=== PATIENT | female | born 1970 | race Two or more races ===

== ENCOUNTER 2017-09-03 16:39 | Emergency (ER) | payer SELFPAY ==
[2017-09-03] MEDS ORDERED: PROCHLORPERAZINE EDISYLATE INJ 10 MG/2 ML VIAL IV ONE (18:30)
[2017-09-03] MEDS ORDERED: KETOROLAC TROMETHAMINE INJ/PF 30 MG/1 ML SDV IV ONE (18:31)
[2017-09-03] MEDS ORDERED: DIPHENHYDRAMINE HCL 50 MG/ML VIAL IV ONE (18:31)
[2017-09-03] MEDS ORDERED: DEXAMETHASONE SOD PHOS INJ 10 MG/1 ML VIAL IV ONE (18:31)
[2017-09-03] MEDS ORDERED: NORMAL SALINE 1000 ML 1,000 ML IV ONE (18:31)
--- NOTE | 2017-09-03 18:32 | ER Document Report ---
ED General - General Chief Complaint: Headache Stated Complaint: HEADACHE Time Seen by Provider: 09/03/17 18:30 Notes: Patient is a 47-year-old female with a past medical history of migraine headaches who presents with 2 days of progressively worsening right-sided headache. She describes it as a severe, throbbing, aching pain to her right forehead and temporal scalp. She states lights and sounds worsen the pain. She has been trying Lortab which has been prescribed by her primary care doctor for her headaches without any significant relief of the pain. She has associated nausea without vomiting. No focal weakness or numbness. She has not had any fever or constitutional symptoms. She states this feels very similar to prior migraine headaches that she has had in the past. She has not seen her primary doctor regarding today's concerns. She does not take any preventative medications for her migraine headaches. She states she typically has 3-4 migraine headaches per month. - Related Data Allergies/Adverse Reactions: codeine Allergy (Verified 09/03/17 16:43) Iodinated Contrast- Oral and IV Dye Allergy (Verified 09/03/17 16:43) meperidine [From Demerol] Allergy (Verified 09/03/17 16:43) morphine Allergy (Verified 09/03/17 16:43) Past Medical History - General Information source: Patient - Social History Smoking Status: Never Smoker Frequency of alcohol use: None Drug Abuse: None Family History: Reviewed & Not Pertinent Review of Systems - Review of Systems Notes: Constitutional: Negative for fever. HENT: Negative for sore throat. Eyes: Negative for visual changes. Cardiovascular: Negative for chest pain. Respiratory: Negative for shortness of breath. Gastrointestinal: Negative for abdominal pain, vomiting or diarrhea. Genitourinary: Negative for dysuria. Musculoskeletal: Negative for back pain. Skin: Negative for rash. Neurological: Positive for headache 10 point ROS negative except as marked above and in HPI. Physical Exam - Vital signs Vitals: Temp Pulse Resp BP Pulse Ox 98.0 F 63 16 117/52 L 96 09/03/17 17:31 09/03/17 17:31 09/03/17 17:31 09/03/17 17:31 09/03/17 17:31 Interpretation: Normal Notes: PHYSICAL EXAMINATION: GENERAL: Well-appearing, well-nourished and in no acute distress. HEAD: Atraumatic, normocephalic. EYES: Pupils equal round and reactive to light, extraocular movements intact, sclera anicteric, conjunctiva are normal. ENT: nares patent, oropharynx clear without exudates. Moist mucous membranes. NECK: Normal range of motion, supple without lymphadenopathy LUNGS: Breath sounds clear to auscultation bilaterally and equal. No wheezes rales or rhonchi. HEART: Regular rate and rhythm without murmurs ABDOMEN: Soft, nontender, normoactive bowel sounds. No guarding, no rebound. No masses appreciated. EXTREMITIES: Normal range of motion, no pitting or edema. No cyanosis. NEUROLOGICAL: Face symmetric. Tongue protrudes midline. Extraocular motions intact. Pupils are 2 mm and equally reactive. Normal speech, normal gait. 5 out of 5 strength in both the distal and proximal upper and lower extremities bilaterally. Sensation is grossly intact throughout. Finger to nose testing normal. Pronator drift normal. PSYCH: Normal mood, normal affect. SKIN: Warm, Dry, normal turgor, no rashes or lesions noted. Course - Re-evaluation Re-evalutation: 09/03/17 18:32 Presentation of a headache that appears to be most consistent with tension versus migrainous type headache. Headache was not maximal in onset, patient has no focal neurologic deficits, no nuchal rigidity, vital signs within normal limits, no papilledema, and patient is overall well in appearance. Based on clinical history and examination I do not suspect an acute subarachnoid hemorrhage, dural venous sinus thrombosis, acute meningitis, or intercranial mass. Given my low clinical suspicion for any acute life-threatening etiology, I do not feel advanced neuro imaging or laboratory testing is indicated at this time. Will proceed with headache cocktail and reassess. 09/03/17 19:47 Patient has had complete resolution of her headache. She remains without neurologic deficits. At this time will discharge with return precautions and follow-up recommendations. Verbal discharge instructions given a the bedside and opportunity for questions given. Medication warnings reviewed. Patient is in agreement with this plan and has verbalized understanding of return precautions and the need for primary care follow-up in the next 24-72 hours. - Vital Signs Vital signs: Temp Pulse Resp BP Pulse Ox 97.7 F 61 16 119/59 L 98 09/03/17 19:59 09/03/17 19:59 09/03/17 17:31 09/03/17 19:59 09/03/17 19:59 Discharge - Discharge Clinical Impression: Migraine headache Qualifiers: Migraine type: unspecified Status migrainosus presence: with status migrainosus Intractability: not intractable Qualified Code(s): G43.901 - Migraine, unspecified, not intractable, with status migrainosus Condition: Good Disposition: HOME, SELF-CARE Additional Instructions: You were seen today for a migraine headache. Please follow-up with your primary care doctor regarding today's ED visit. Return to emergency department immediately if you develop a headache that gets to its maximum severity within 20 minutes of onset, you pass out, you develop weakness, numbness, changes in your vision, become unable to keep any fluids down for more than 12 hours, or develop a fever greater than 100.4 degrees Fahrenheit. If you develop a similar migraine headache in the future I recommend that you immediately take 600 mg of ibuprofen and 50 mg of Benadryl and go to sleep as quickly as possible. This can often prevent your migraine headache from becoming severe. Forms: Return to Work
[2017-09-03 20:08] VITALS: BP 119/59
== END 2017-09-03 19:55 | disposition home or self-care (01) ==
LOC: ER 16:39
DX: G43.901 Migraine, unspecified, not intractable, with status migrainosus (principal); Z88.6 Allergy status to analgesic agent
CPT/HCPCS: 99283; 96361; 96374; 96375; J1200; J1885; J0780; J7030; J1100

== ENCOUNTER 2017-09-08 14:24 | Emergency (ER) | payer SELFPAY ==
[2017-09-08] MEDS ORDERED: KETOROLAC TROMETHAMINE INJ/PF 30 MG/1 ML SDV IV ONE (16:53)
[2017-09-08] MEDS ORDERED: METOCLOPRAMIDE HCL INJ/PF 10 MG/2 ML SDV IV ONE (16:53)
[2017-09-08] MEDS ORDERED: DIPHENHYDRAMINE HCL 50 MG/ML VIAL IV ONE (16:53)
--- NOTE | 2017-09-08 16:53 | ER Document Report ---
ED Medical Screen (RME) - General Chief Complaint: Headache Stated Complaint: HEADACHE Time Seen by Provider: 09/08/17 16:47 Notes: 47 yo female with hx/o migraines c/o right sided pulsatile headache x 2 weeks. pt was seen in ED on 08/31 for same. received complete relief from headache with migraine cocktail, but woke the next day with another migraine. pt reports this is typical headache for her. she has taken zomig + valium in the past with good relief, but does not have RX at this time. no fever, no neck pain. + nausea TRAVEL OUTSIDE OF THE [place] IN LAST 30 DAYS: No - Related Data Allergies/Adverse Reactions: codeine Allergy (Verified 09/08/17 14:28) Iodinated Contrast- Oral and IV Dye Allergy (Verified 09/08/17 14:28) meperidine [From Demerol] Allergy (Verified 09/08/17 14:28) morphine Allergy (Verified 09/08/17 14:28) Past Medical History Pulmonary Medical History: Reports: Hx Asthma Neurological Medical History: Reports: Hx Migraine Renal/ Medical History: Denies: Hx Peritoneal Dialysis Past Surgical History: Reports: Hx Abdominal Surgery - hernia repair x4, Hx Cholecystectomy, Hx Tubal Ligation Physical Exam - Vital signs Vitals: Temp Pulse Resp BP Pulse Ox 98.5 F 75 17 116/68 96 09/08/17 14:42 09/08/17 14:42 09/08/17 14:42 09/08/17 14:42 09/08/17 14:42 Course - Vital Signs Vital signs: Temp Pulse Resp BP Pulse Ox 98.5 F 75 17 116/68 96 09/08/17 14:42 09/08/17 14:42 09/08/17 14:42 09/08/17 14:42 09/08/17 14:42
--- NOTE | 2017-09-08 16:55 | ER Document Report ---
ED Headache - General Chief Complaint: Headache Stated Complaint: HEADACHE Time Seen by Provider: 09/08/17 16:47 Notes: Patient is a 47-year-old female with a past medical history of migraine headaches who presents with 2 weeks of progressively worsening right-sided headache. She describes it as a severe, throbbing, aching pain to her right forehead and temporal scalp. She states lights and sounds worsen the pain. This is typical headache for patient. pt was seen in ED on 08/31 for same. received complete relief from headache with migraine cocktail, but woke the next day with another migraine. pt reports this is typical headache for her. she has taken zomig + valium in the past with good relief, but does not have RX at this time. no fever, no neck pain. + nauseaS. No focal weakness or numbness. no fever or constitutional symptoms. TRAVEL OUTSIDE OF THE [place] IN LAST 30 DAYS: No - HPI Patient complains to provider of: "Migraine" Patient reports: Hx chronic headaches Onset was: Gradual Timing: Still present Quality of pain: Throbbing Preceding symptoms: Typical of prior aura(s) Associated symptoms: denies: Dizzy, Fever, Neck pain Exacerbated by: Light, Noise, Movement Similar symptoms previously: Yes Recently seen / treated by doctor: Yes - 08/31 ED - Related Data Allergies/Adverse Reactions: codeine Allergy (Verified 09/08/17 14:28) Iodinated Contrast- Oral and IV Dye Allergy (Verified 09/08/17 14:28) meperidine [From Demerol] Allergy (Verified 09/08/17 14:28) morphine Allergy (Verified 09/08/17 14:28) Past Medical History - General Information source: Patient - Social History Smoking Status: Never Smoker Frequency of alcohol use: None Drug Abuse: None Family History: Reviewed & Not Pertinent Patient has suicidal ideation: No Patient has homicidal ideation: No Pulmonary Medical History: Reports: Hx Asthma Neurological Medical History: Reports: Hx Migraine Renal/ Medical History: Denies: Hx Peritoneal Dialysis Past Surgical History: Reports: Hx Abdominal Surgery - hernia repair x4, Hx Cholecystectomy, Hx Tubal Ligation Review of Systems - Review of Systems Constitutional: No symptoms reported EENT: No symptoms reported Cardiovascular: No symptoms reported Respiratory: No symptoms reported Gastrointestinal: No symptoms reported Genitourinary: No symptoms reported Female Genitourinary: No symptoms reported Musculoskeletal: No symptoms reported Skin: No symptoms reported Hematologic/Lymphatic: No symptoms reported Neurological/Psychological: No symptoms reported Physical Exam - Vital signs Vitals: Temp Pulse Resp BP Pulse Ox 98.5 F 75 17 116/68 96 09/08/17 14:42 09/08/17 14:42 09/08/17 14:42 09/08/17 14:42 09/08/17 14:42 Interpretation: Normal - General General appearance: Appears well, Alert - HEENT Head: Normocephalic, Atraumatic Eyes: Normal Pupils: PERRL - Respiratory Respiratory status: No respiratory distress Chest status: Nontender Breath sounds: Normal Chest palpation: Normal - Cardiovascular Rhythm: Regular Heart sounds: Normal auscultation Murmur: No - Abdominal Inspection: Normal Distension: No distension Bowel sounds: Normal Tenderness: Nontender Organomegaly: No organomegaly - Back Back: Normal, Nontender - Extremities General upper extremity: Normal inspection, Nontender, Normal color, Normal ROM , Normal temperature General lower extremity: Normal inspection, Nontender, Normal color, Normal ROM , Normal temperature, Normal weight bearing. No: Aristeo's sign - Neurological Neuro grossly intact: Yes Cognition: Normal Orientation: AAOx4 Esther Coma Scale Eye Opening: Spontaneous Baldwin Coma Scale Verbal: Oriented Esther Coma Scale Motor: Obeys Commands Baldwin Coma Scale Total: 15 Speech: Normal Motor strength normal: LUE, RUE, LLE, RLE Sensory: Normal - Psychological Associated symptoms: Normal affect, Normal mood - Skin Skin Temperature: Warm Skin Moisture: Dry Skin Color: Normal Course - Re-evaluation Re-evalutation: 09/08/17 17:12 H&P c/w with migraine vs tension headache. no meningeal symtpoms. I estimate there is low risk for acute glaucoma, temporal arteritis, meningitis, stroke. pt is neurologically intact with no deficits. 09/08/17 18:06 pt reports improvement in headache. neurologically intact. discussed home care , PCM follow up and ED return precautions. pt agreeable with plan and stable for discharge - Vital Signs Vital signs: Temp Pulse Resp BP Pulse Ox 98.5 F 75 17 116/68 96 09/08/17 14:42 09/08/17 14:42 09/08/17 14:42 09/08/17 14:42 01/24/18 14:42 Discharge - Discharge Clinical Impression: Headache Qualifiers: Headache type: unspecified Headache chronicity pattern: acute headache Intractability: not intractable Qualified Code(s): R51 - Headache Condition: Stable Disposition: HOME, SELF-CARE Instructions: Antinausea Medication ([facility]), Use of Diphenhydramine, Headache ( [facility]), Reglan ([facility]), Toradol Injection ([facility]) Additional Instructions: Take medications as prescribed increase hydation establish with primary care if symptoms persist Prescriptions: Ondansetron HCl [Zofran 8 mg Tablet] 8 mg PO Q8HP PRN #20 tablet PRN Reason: Diazepam [Valium 5 Mg Tablet] 5 mg PO TID PRN #20 tablet PRN Reason: Zolmitriptan [Zomig] 5 mg PO ONCE PRN #9 tablet PRN Reason: Forms: Return to Work
[2017-09-08 18:18] VITALS: BP 119/56
== END 2017-09-08 18:17 | disposition home or self-care (01) ==
LOC: ER 14:24
DX: R51 Headache (principal)
CPT/HCPCS: 99283; 96374; 96375; J1200; J1885; J2765